=== PATIENT | male | born 1955 | race Native Hawaiian/Other Pacific Islander ===

== ENCOUNTER 2016-12-04 12:56 | Outpatient (CLI) | payer OTHER | END 2016-12-04 20:07 | disposition home or self-care (01) | LOC: RAD 12:56 | DX: M25.511 Pain in right shoulder (principal) ==

== ENCOUNTER 2016-12-20 11:00 | Emergency (ER) | payer OTHER ==
[~2016-12-20] VITALS: Ht 177.8 cm; Wt 63.5 kg
[2016-12-20] MEDS ORDERED: OXYCODONE30 MG PO (11:29)
[2016-12-20] MEDS ORDERED: TRAMADOL HCL100 M1 OR (11:29)
[2016-12-20] MEDS ORDERED: TIZA4TAB5 PO (11:30)
[2016-12-20] MEDS ORDERED: XANAX XR1 MG OR (11:30)
[2016-12-20] MEDS ORDERED: GABA300C2 PO (11:31)
[2016-12-20 12:14] LABS: PLATELET COUNT 255 K/uL (142-355)
[2016-12-20 12:21] LABS: SODIUM 135 mmol/L (136-145)
[2016-12-20 14:00] VITALS: BP 132/81; TEMP 98.1
== END 2016-12-20 14:00 | disposition home or self-care (01) ==
LOC: ED 11:00
PROVIDERS: Emergency Medicine
DX: R10.814 Left lower quadrant abdominal tenderness (principal); R10.32 Left lower quadrant pain; K59.09 Other constipation; M54.5 Low back pain
CPT/HCPCS: 36415; 80053; 81000; 83690; 85027; 99283; Q9963

== ENCOUNTER 2017-05-22 08:00 | Day surgery (SDC) | payer OTHER ==
[2017-05-17 09:06] LABS: PLATELET COUNT 269 K/uL (142-355)
[2017-05-17 09:16] LABS: SODIUM 136 mmol/L (136-145)
[2017-05-17 09:22] LABS: PARTIAL THROMBOPLASTIN TIME 27.1 SECONDS (24.5-33.6)
[~2017-05-22] VITALS: Ht 30.5 cm; Wt 0.5 kg
[~2017-05-22 08:00] MED LIST: GABA300C2 PO; OXYCODONE30 MG PO; TIZA4TAB5 PO; TRAMADOL HCL100 M1 OR; XANAX XR1 MG OR
== END 2017-05-22 11:26 | disposition home or self-care (01) ==
LOC: OR 08:00
PROVIDERS: Student in an Organized Health Care Education/Training Program
PROC: 0DBN8ZX Excision of Sigmoid Colon, Via Natural or Artificial Opening Endoscopic, Diagnostic (ICD-10-PCS; principal; 2017-05-22)
PROC: 0DBP8ZX Excision of Rectum, Via Natural or Artificial Opening Endoscopic, Diagnostic (ICD-10-PCS; 2017-05-22)
DX: K57.30 Diverticulosis of large intestine without perforation or abscess without bleeding (principal); D12.5 Benign neoplasm of sigmoid colon; D12.7 Benign neoplasm of rectosigmoid junction
CPT/HCPCS: 36415; 80053; 85027; 85610; 85730; J3010

== ENCOUNTER 2017-11-08 08:52 | Outpatient (CLI) | payer OTHER | END 2017-11-08 09:02 | disposition short-term general hospital (02) | LOC: AMB 08:52 | DX: R68.89 Other general symptoms and signs (principal) | CPT/HCPCS: A0425; A0429 ==

== ENCOUNTER 2017-11-08 09:09 | Emergency (ER) | payer OTHER ==
[~2017-11-08] VITALS: Ht 177.8 cm; Wt 65.8 kg
[2017-11-08 10:13] LABS: PLATELET COUNT 216 K/uL (142-355)
[2017-11-08 10:14] LABS: POTASSIUM 4.1 mmol/L (3.6-5.2); SODIUM 133 mmol/L (136-145)
[2017-11-08 10:48] VITALS: BP 138/92; TEMP 98.6
== END 2017-11-08 10:49 | disposition home or self-care (01) ==
LOC: ED 09:09
PROVIDERS: Emergency Medicine
DX: B34.9 Viral infection, unspecified (principal); J02.9 Acute pharyngitis, unspecified
CPT/HCPCS: 36415; 80053; 85027; 87081; 87804; 87880; 99283

== ENCOUNTER 2019-06-18 10:40 | Emergency (ER) | payer OTHER ==
[~2019-06-18] VITALS: Ht 177.8 cm; Wt 61.2 kg
[2019-06-18 10:43] VITALS: TEMP 98.7
[2019-06-18] MEDS ORDERED: DULO30CA PO (10:50)
[2019-06-18] MEDS ORDERED: NEURONTIN800 MG PO (10:51)
[2019-06-18 11:42] LABS: PLATELET COUNT 301 K/uL (142-355)
[2019-06-18 11:50] LABS: POTASSIUM 4.2 mmol/L (3.6-5.2)
[2019-06-18 12:58] VITALS: BP 169/91
== END 2019-06-18 12:58 | disposition home or self-care (01) ==
LOC: ED 10:40
PROVIDERS: Emergency Medicine
DX: N20.0 Calculus of kidney (principal)
CPT/HCPCS: 36415; 80053; 85027; 96372; 99283; J1885

== ENCOUNTER 2020-03-30 11:37 | Outpatient (CLI) | payer OTHER ==
[~2020-03-30 11:37] MED LIST changes: +DULO30CA PO; +NEURONTIN800 MG PO
== END 2020-03-30 21:48 | disposition home or self-care (01) ==
LOC: LAB 11:37
DX: N39.0 Urinary tract infection, site not specified (principal)
CPT/HCPCS: 81000

== ENCOUNTER 2021-08-24 14:04 | Emergency (ER) | payer OTHER ==
[~2021-08-24] VITALS: Ht 177.8 cm; Wt 68.0 kg
[2021-08-24 14:10] VITALS: BP 138/71; TEMP 98.9
== END 2021-08-24 15:47 | disposition home or self-care (01) ==
LOC: ED 14:04
DX: M79.18 Myalgia, other site (principal); M54.2 Cervicalgia; G89.29 Other chronic pain
CPT/HCPCS: 96372; 99282; J1885

== ENCOUNTER 2022-10-18 11:16 | Day surgery (SDC) | payer OTHER | END 2022-10-18 15:00 | disposition home or self-care (01) | LOC: OR 11:16 | PROVIDERS: ATTEND Internal Medicine Gastroenterology | PROC: 0DBP8ZZ Excision of Rectum, Via Natural or Artificial Opening Endoscopic (ICD-10-PCS; principal; 2022-10-18) | PROC: 0DBN8ZZ Excision of Sigmoid Colon, Via Natural or Artificial Opening Endoscopic (ICD-10-PCS; 2022-10-18) | DX: K63.5 Polyp of colon (principal); D12.8 Benign neoplasm of rectum; K62.1 Rectal polyp; K57.30 Diverticulosis of large intestine without perforation or abscess without bleeding; K64.8 Other hemorrhoids; Z12.11 Encounter for screening for malignant neoplasm of colon; Z86.010 Personal history of colon polyps | CPT/HCPCS: J2704 ==

== ENCOUNTER 2022-11-16 08:45 | Outpatient (CLI) | payer OTHER | END 2022-11-16 18:58 | disposition home or self-care (01) | LOC: CT 08:45 → LABW 08:45 → CT 10:00 | PROVIDERS: ATTEND Internal Medicine Gastroenterology | DX: R10.84 Generalized abdominal pain (principal) | CPT/HCPCS: 36415; 82565; 84520; Q9963 ==

== ENCOUNTER 2023-02-22 10:11 | Outpatient (CLI) | payer OTHER | END 2023-02-22 17:00 | disposition home or self-care (01) | LOC: CT 10:11 | PROVIDERS: ATTEND Family Medicine | DX: R91.1 Solitary pulmonary nodule (principal) ==

== ENCOUNTER 2023-04-16 17:29 | Outpatient (CLI) | payer OTHER | END 2023-04-16 20:13 | disposition home or self-care (01) | LOC: CT 17:29 | PROVIDERS: ATTEND Specialist | DX: R31.0 Gross hematuria (principal) ==

== ENCOUNTER 2023-06-25 12:39 | Outpatient (CLI) | payer OTHER | END 2023-06-25 20:25 | disposition home or self-care (01) | LOC: CT 12:39 | PROVIDERS: ATTEND Family Medicine | DX: R91.8 Other nonspecific abnormal finding of lung field (principal) ==